=== PATIENT | male | born 1960 | race Hispanic/Latino ===

== ENCOUNTER 2024-04-11 06:21 | Observation (INO) | payer OTHER ==
[2024-04-08 12:00] LABS: BASOPHILS % 0.2 % (0.0-1.0); EOSINOPHILS # (AUTO) 0.2 (0.0-0.4); EOSINOPHILS % 1.8 % (0.0-6.0); HEMATOCRIT 45.1 % (38.2-49.6); HEMOGLOBIN 15.5 g/dL (14.0-18.0); LYMPHOCYTES # (AUTO) 1.3 (1.0-3.2); LYMPHOCYTES % 15.8 % (18.0-39.1); MEAN CORPUSCULAR HEMOGLOBIN 35.6 pg (28-32); MEAN CORPUSCULAR HGB CONC 34.4 g/dL (31-35); MEAN CORPUSCULAR VOLUME 103.4 fL (81-99); MONOCYTES # (AUTO) 0.9 (0.2-0.8); MONOCYTES % 10.9 % (4.4-11.3); NEUTROPHILS # (AUTO) 5.8 (2.1-6.9); NEUTROPHILS % 70.9 % (38.7-80.0); PLATELET COUNT 184 x10e3/uL (140-360); RED BLOOD COUNT 4.36 x10e6/uL (4.3-5.7); RED CELL DISTRIBUTION WIDTH 11.5 % (11.7-14.4); WHITE BLOOD COUNT 8.23 x10e3/uL (4.8-10.8)
[~2024-04-11 06:21] MED LIST: FOLIC ACID0.4 MG PO; LISINOPRIL10 MG PO; MELOXICAM7.5 MG PO
[2024-04-11] MEDS: CELECOXIB 200 MG CAP ONE (07:41)
[2024-04-11] MEDS: DEXAMETHASONE SOD PHOS 10 MG/1 ML VIAL ONE (07:41)
[2024-04-11] MEDS: CEFAZOLIN SODIUM 2 GM ONE (07:41)
[2024-04-11] MEDS: GABAPENTIN 300 MG CAP ONE (07:41)
[2024-04-11] MEDS: LACTATED RINGER'S 1,000 ML ONE (07:41)
[2024-04-11] MEDS ORDERED: ROPIVACAINE 246.25 MG, EPINEPHRINE HCL 1:1000 1ML 0.5 MG, CLONIDINE HCL 0.08 MG, KETORO... INJ ONE (08:00)
[2024-04-11] MEDS ORDERED: TRANEXAMIC ACID 20 ML ONE (08:05)
[2024-04-11] MEDS ORDERED: SODIUM CHLORIDE 0.9% 500ML 500 ML ONE (08:05)
[2024-04-11] MEDS ORDERED: Vancomycin IV 500 MG ONE (08:05)
[2024-04-11] MEDS ORDERED: FENTANYL CITRATE/PF 100MCG/2 ML INJ ONE ×2 (08:15→12:43)
[2024-04-11] MEDS ORDERED: MIDAZOLAM HCL 2 MG/2 ML VIAL ONE (08:16)
[2024-04-11] MEDS ORDERED: HYDROMORPHONE 1MG/1ML INJ ONE (08:42)
[2024-04-11] MEDS ORDERED: KETAMINE 50MG/5ML SYR ONE (09:25)
[2024-04-11] MEDS ORDERED: ONDANSETRON HCL INJ 2MG/ML 2ML 2 MG/ML VIAL IV PRN (10:00)
[2024-04-11] MEDS ORDERED: DIPHENHYDRAMINE HCL INJ 50 MG/ML VIAL IV PRN (10:00)
[2024-04-11] MEDS ORDERED: DOCUSATE SODIUM 100 MG CAP PO PRN (10:00)
[2024-04-11] MEDS ORDERED: HYDROCODONE/APAP 5MG-325MG TAB PO PRN (10:00)
[2024-04-11] MEDS ORDERED: SODIUM CHLORIDE 0.9% 1000ML 1,000 ML IV SCH (10:00)
[2024-04-11] MEDS ORDERED: HYDROCODONE/APAP 7.5MG-325MG 1 EA TAB PO PRN (10:00)
[2024-04-11] MEDS: ONDANSETRON HCL INJ 2MG/ML 2ML 2 MG/ML VIAL IV ONE (11:11)
[2024-04-11] MEDS ORDERED: ASPIRIN81 MG PO (11:15)
[2024-04-11] MEDS ORDERED: LIDOCAINE HCL 2% LOCAL INJ 5 ML SDV VIAL INJ ONE (12:31)
[2024-04-11] MEDS ORDERED: ROCURONIUM BROMIDE 10 MG/ML 5ML VIAL IV ONE (12:31)
[2024-04-11] MEDS ORDERED: PROPOFOL IV EMULSION 10 MG/ML 20 ML VIAL ONE (12:31)
[2024-04-11] MEDS ORDERED: ONDANSETRON HCL INJ 2MG/ML 2ML 2 MG/ML VIAL ONE (12:31)
[2024-04-11] MEDS ORDERED: DEXAMETHASONE SOD PHOS INJ 4 MG/ML SDV ONE (12:31)
[2024-04-11] MEDS ORDERED: SEVOFLURANE INHAL SOLN 250 ML PEN BTL ONE (12:31)
[2024-04-11] MEDS ORDERED: GLYCOPYRROLATE INJ 0.2 MG/ML VIAL ONE (12:31)
[2024-04-11] MEDS ORDERED: LABETALOL HCL 5 MG/ML 20ML VIAL ONE (12:31)
[2024-04-11] MEDS ORDERED: NEOSTIGMINE 1 MG/ML 10ML VIAL ONE (12:31)
[2024-04-11] MEDS ORDERED: DEXAMETHASONE SOD PHOS 10 MG/1 ML VIAL ONE (12:34)
[2024-04-11] MEDS ORDERED: BUPIVACAINE 0.25% 30ML SDV ONE (12:34)
[2024-04-11 14:10] VITALS: BP 129/76; PULSE 71; RESP 17; O2SAT 98
[2024-04-12] MEDS ORDERED: CELECOXIB 200 MG CAP PO SCH (09:00)
[2024-04-12] MEDS ORDERED: ASPIRIN 325 MG TAB PO SCH (09:00)
[2024-04-12] MEDS ORDERED: ACETAMINOPHEN 1000 MG/100 ML IV PRN (10:00)
== END 2024-04-11 14:37 | disposition home health service (06) ==
LOC: OR 06:21 → PACU V 10:15
PROVIDERS: ADMIT Specialist; ATTEND Specialist
DX: M16.11 Unilateral primary osteoarthritis, right hip (principal); I10 Essential (primary) hypertension; Z01.810 Encounter for preprocedural cardiovascular examination; Z01.812 Encounter for preprocedural laboratory examination; Z01.818 Encounter for other preprocedural examination; Z79.1 Long term (current) use of non-steroidal anti-inflammatories (NSAID); Z79.82 Long term (current) use of aspirin; Z79.899 Other long term (current) drug therapy; Z87.440 Personal history of urinary (tract) infections
CPT/HCPCS: 27130; 36415; 71046; 72170; 85025; 86850; 86900; 93005; 97116 ×2; 97161; 97530 ×2; C1713 ×3; C1776 ×2; G0378; J0171; J0690; J1100 ×2; J1170; J1885; J2001; J2250; J2405; J2704; J2710; J2795; J3010; J3370; J3490; J7040; J7121

== ENCOUNTER 2024-05-06 12:53 | Outpatient (RCR) | payer BC ==
[~2024-05-06 12:53] MED LIST changes: +ASPIRIN81 MG PO
== END 2024-05-11 ==
LOC: PT 12:53
PROVIDERS: ATTEND Physician Assistant
DX: Z47.1 Aftercare following joint replacement surgery (principal); Z96.641 Presence of right artificial hip joint; M62.81 Muscle weakness (generalized); M25.551 Pain in right hip; M25.651 Stiffness of right hip, not elsewhere classified

== ENCOUNTER 2024-05-27 12:50 | Outpatient (RCR) | payer BC | END 2024-06-11 | LOC: PT 12:50 | PROVIDERS: ATTEND Physician Assistant | DX: Z47.1 Aftercare following joint replacement surgery (principal); Z96.641 Presence of right artificial hip joint ==